=== PATIENT | male | born 1950 | race Caucasian/White ===

== ENCOUNTER 2019-04-10 22:41 | Emergency (ER) | payer BC ==
--- NOTE | 2019-04-10 23:38 | EDM.PDOC ---
ED HPI GENERAL MEDICAL PROBLEM - General Chief Complaint: Lower Extremity Injury/Pain Stated Complaint: L LEG REDNESS/PAIN Time Seen by Provider: 04/10/19 23:37 - History of Present Illness INITIAL COMMENTS - FREE TEXT/NARRATIVE: 68-year-old male presents emergency room with painful swelling in his left lower leg This is been present for a little over 24 hours progressively getting worse. Patient has never had anything quite like this in the past. He denies trauma to the area. He has not had any prolonged sitting recently. The patient has not any breathing difficulties or shortness of breath no chest pain chest pressure. Patient has the increased swelling in his left lower leg. And it is very tender and slightly warm. Treatments [employer]: Reports: Other (see below) Other Treatments [employer]: none Left Lower Posterior Leg Pain Score (Numeric/FACES): 4 - Related Data Allergies Allergy/AdvReac Type Severity Reaction Status Date / Time atorvastatin [From Lipitor] Allergy Muscle Verified 04/10/19 22:53 Aches Home Meds: Home Meds Atenolol 100 mg PO DAILY 04/10/19 [History] buPROPion HCl [Wellbutrin Xl] 300 mg PO DAILY 04/10/19 [History] Rivaroxaban [Xarelto] 15 mg PO Q12H #6 tablet 04/11/19 [Rx] Past Medical History Cardiovascular History: Reports: Hypertension Neurological History: Reports: CVA Social & Family History - Tobacco Use Smoking Status *Q: Never Smoker - Caffeine Use Caffeine Use: Reports: Soda, Tea - Recreational Drug Use Recreational Drug Use: No Review of Systems - Review of Systems Review Of Systems: See Below Constitutional: Reports: No Symptoms Eyes: Reports: No Symptoms Ears: Reports: No Symptoms Nose: Reports: No Symptoms Mouth/Throat: Reports: No Symptoms Respiratory: Reports: No Symptoms Cardiovascular: Reports: No Symptoms GI/Abdominal: Reports: No Symptoms ED EXAM, GENERAL - Physical Exam Exam: See Below Exam Limited By: No Limitations General Appearance: Alert, WD/WN Head: Atraumatic, Normocephalic Neck: Normal Inspection, Supple, Non-Tender, Full Range of Motion Respiratory/Chest: No Respiratory Distress, Lungs Clear, Normal Breath Sounds Cardiovascular: Regular Rate, Rhythm, No Edema, No Murmur GI/Abdominal: Normal Bowel Sounds, Soft, Non-Tender Back Exam: Normal Inspection. No: CVA Tenderness (L), CVA Tenderness (R) Extremities: Normal Inspection, Normal Range of Motion, Normal Capillary Refill , Other (Posterior left calf has an area that is exquisitely tender minimally erythematous mild warmth positive Homans sign.) Neurological: Alert, Oriented, Normal Cognition Course - Vital Signs Last Recorded V/S: Last Vital Signs Temp 36.6 C 04/10/19 22:58 Pulse 52 L 04/10/19 22:58 Resp 20 04/10/19 22:58 BP 169/94 H 04/10/19 22:58 Pulse Ox 97 04/10/19 22:58 - Orders/Labs/Meds Labs: Laboratory Tests 04/11/19 04/11/19 04/11/19 Range/Units 00:09 00:09 00:09 WBC 7.96 (4.23-9.07) K/mm3 RBC 5.19 (4.63-6.08) M/mm3 Hgb 15.5 (13.7-17.5) gm/L Hct 45.4 (40.1-51.0) % MCV 87.5 (79.0-92.2) fl MCH 29.9 (25.7-32.2) pg MCHC 34.1 (32.2-35.5) g/dl RDW Std Deviation 43.4 (35.1-43.9) fL Plt Count 163 (163-337) K/mm3 MPV 11.5 (9.4-12.3) fl Neutrophils % (Manual) 52 (40-60) % Band Neutrophils % 2 (0-10) % Lymphocytes % (Manual) 29 (20-40) % Atypical Lymphs % 0 % Monocytes % (Manual) 10 (2-10) % Eosinophils % (Manual) 5 (0.8-7.0) % Basophils % (Manual) 1 (0.2-1.2) Myelocytes % 1 Toxic Granulation 1+ slight Platelet Estimate Decreased Plt Morphology Comment Normal RBC Morph Comment Normal PT 10.2 (9.5-12.1) SECONDS INR 0.93 D-Dimer, Quantitative 0.56 H (0.19-0.50) mg/L Sodium 140 (136-145) mEq/L Potassium 4.0 (3.5-5.1) mEq/L Chloride 106 (98-107) mEq/L Carbon Dioxide 23 (21-32) mEq/L Anion Gap 15.0 (5-15) BUN 22 H (7-18) mg/dL Creatinine 1.1 (0.7-1.3) mg/dL Est Cr Clr Drug Dosing 62.18 mL/min Estimated GFR (MDRD) > 60 (>60) mL/min BUN/Creatinine Ratio 20.0 H (14-18) Glucose 90 (80-115) mg/dL Calcium 8.9 (8.5-10.1) mg/dL Meds: Medications Discontinued Medications Generic Name Dose Route Start Last Admin Trade Name Jcarlos PRN Reason Stop Dose Admin Rivaroxaban 15 mg 04/11/19 01:41 04/11/19 01:48 Xarelto PO 04/11/19 01:42 15 mg ONETIME ONE Administration - Re-Assessments/Exams Free Text/Narrative Re-Assessment/Exam: 04/11/19 01:55 Checked a d-dimer that was elevated. At this time of night the patient was to pursue outpatient testing. We'll go and start him on Zaralto 15 mg twice a day. Anticipate being able to get ultrasound of the next day or 2 and the need to follow-up in the Hospital clinic after this. Departure - Departure Time of Disposition: 01:43 Disposition: Home, Self-Care 01 Clinical Impression: DVT (deep venous thrombosis) Qualifiers: Chronicity: unspecified Laterality: left - Discharge Information Prescriptions: Rivaroxaban [Xarelto] 15 mg PO Q12H #6 tablet Instructions: Deep Vein Thrombosis Referrals: PCP,Not In Area [Primary Care Provider] - Forms: ED Department Discharge Additional Instructions: Return to the emergency room with any questions problems worsening symptoms. Call the Hospital clinic first thing in the morning and get an appointment as soon as you can this week. Take the medications as directed and the way we discussed
[2019-04-11] MEDS ORDERED: Rivaroxaban 10 MG Tab PO ONE (01:41)
== END 2019-04-11 01:56 | disposition home or self-care (01) ==
LOC: JD.ED 22:41
DX: I82.4Z2 Acute embolism and thrombosis of unspecified deep veins of left distal lower extremity (principal); I10 Essential (primary) hypertension; Z86.73 Personal history of transient ischemic attack (TIA), and cerebral infarction without residual deficits; Z79.899 Other long term (current) drug therapy; Z88.8 Allergy status to other drugs, medicaments and biological substances
CPT/HCPCS: 36415; 80048; 85007; 85027; 85379; 85610; 99283; A9270; 99284